=== PATIENT | male | born 1960 | race Asian ===

== ENCOUNTER 2023-01-14 04:36 | Inpatient (IN) | payer MEDICAID, OTHER ==
[~2023-01-14] VITALS: Ht 177.8 cm; Wt 66.7 kg
[2023-01-14 05:05] LABS: BASOPHILS % (AUTO) 1.7 % (0.0-2.0); EOSINOPHILS % (AUTO) 3.6 % (1.0-6.0); HEMATOCRIT 41.8 % (41-53); HEMOGLOBIN 14.2 g/dL (13.5-17.5); LYMPHOCYTES # (AUTO) 1.3 K/uL (1.0-4.8); LYMPHOCYTES % (AUTO) 26.7 % (22.0-44.0); MEAN CORPUSCULAR HEMOGLOBIN 31.9 pg (26.0-34.0); MEAN CORPUSCULAR HGB CONC 33.9 G/dL (31.0-37.0); MEAN CORPUSCULAR VOLUME 94 fL (80-100); MONOCYTES # (AUTO) 0.4 K/uL (0.1-1.0); MONOCYTES % (AUTO) 7.7 % (2.0-9.0); NEUTROPHILS % (AUTO) 60.3 % (40.0-70.0); PLATELET COUNT (AUTO) 244 K/uL (150-450); RED BLOOD CELL COUNT(AUTO) 4.44 MIL/uL (4.50-5.90); RED CELL DISTRIBUTION WIDTH 13.7 % (11.5-14.5); WHITE BLOOD COUNT (AUTO) 5.1 K/uL (4.5-11.0)
[2023-01-14 05:18] LABS: ANION GAP 5 mmol/L (8-16); CALCIUM, TOTAL 8.7 mg/dL (8.8-10.5); CARBON DIOXIDE 27 mmol/L (22-29); CHLORIDE 105 mmol/L (98-107); CREATININE 0.85 mg/dL (0.60-1.30); GLOMERULAR FILTR. RATE CALC > 60 mL/min (>60); GLUCOSE,RANDOM 106 mg/dL (70-110); POTASSIUM 3.9 mmol/L (3.5-5.1); SODIUM SERUM 137 mmol/L (136-145); UREA NITROGEN, BLOOD 13 mg/dL (7-18)
[2023-01-14 05:19] LABS: ALCOHOL, BLOOD (SERUM) < 3 mg/dL (0-10)
[2023-01-14 05:24] LABS: ALANINE AMINOTRANSFERASE 25 U/L (12-78); ALBUMIN 3.3 g/dL (3.4-5.0); ALKALINE PHOSPHATASE 94 U/L (46-116); ASPARTATE AMINOTRANSFERASE 14 U/L (15-37); BILIRUBIN,TOTAL 0.4 mg/dL (0.1-1.0); TOTAL PROTEIN, SERUM 6.5 g/dL (6.4-8.2)
[2023-01-14] MEDS ORDERED: BUPR-49 PO (05:25)
[2023-01-14] MEDS ORDERED: ARIP5TAB37 PO (05:25)
[2023-01-14] MEDS ORDERED: ZIPR20CA38 PO (05:25)
[2023-01-14] MEDS ORDERED: TRAZ-252 PO (05:25)
[2023-01-14 09:41] LABS: ALCOHOL, URINE DRUG SCREEN NEGATIVE (NEGATIVE); AMPHET/METH SCREEN,URINE POSITIVE (NEGATIVE); BARBITURATE SCREEN, URINE NEGATIVE (NEGATIVE); BENZODIAZEPINES SCREEN,URINE NEGATIVE (NEGATIVE); CANNABINOID SCREEN,URINE NEGATIVE (NEGATIVE); COCAINE SCREEN,URINE NEGATIVE (NEGATIVE); METHADONE SCREEN, URINE NEGATIVE (NEGATIVE); OPIATE SCREEN,URINE NEGATIVE (NEGATIVE); PHENCYCLIDINE SCREEN,URINE NEGATIVE (NEGATIVE)
[2023-01-14] MEDS ORDERED: LORazepam 1 MG TABLET PO ONE (09:45)
[2023-01-14 10:01] LABS: COVID AG,FIA SOURCE NASAL SWAB
[2023-01-14 10:19] LABS: SARS-COV2 (COVID) ANTIGEN,FIA Negative (Negative)
[2023-01-14] MEDS ORDERED: HALOPERIDOL 5 MG TABLET PO PRN (11:00)
[2023-01-14 17:45] VITALS: BP 116/80; PULSE 91; RESP 18; TEMP 97.4; O2SAT 100
[2023-01-14] MEDS: LORazepam 2 MG TABLET PO PRN (17:55)
[2023-01-14 20:17] VITALS: BP 142/86; PULSE 80; RESP 18; TEMP 97.8; O2SAT 97
[2023-01-15 08:30] VITALS: BP 139/73; PULSE 84; RESP 17; TEMP 97.5; O2SAT 98
[2023-01-15] MEDS: LORazepam 2 MG TABLET PO PRN ×2 (12:09→17:59)
[2023-01-15] MEDS ORDERED: ACETAMINOPHEN 325 MG TABLET PO PRN (12:30)
[2023-01-15] MEDS ORDERED: NICOTINE 14 MG/24 HOUR PATCH TD PRN (12:30)
[2023-01-15] MEDS ORDERED: DOCUSATE SODIUM 100 MG CAPSULE PO PRN (12:30)
[2023-01-15] MEDS ORDERED: PETROLATUM,WHITE 28 GM JELLY TP PRN (12:30)
[2023-01-15] MEDS ORDERED: CloNIDine HCL 0.1 MG TABLET PO PRN (12:30)
[2023-01-15] MEDS ORDERED: ONDANSETRON HCL 4 MG TABLET PO PRN (12:30)
[2023-01-15] MEDS ORDERED: LOPERAMIDE HCL 2 MG CAPSULE PO PRN (12:30)
[2023-01-15] MEDS ORDERED: IBUPROFEN 400 MG TABLET PO PRN (12:30)
[2023-01-15] MEDS ORDERED: MAG HYDROX/AL HYDROX/SIMETH ES 30 ML SUSPENSION UDCUP PO PRN (12:30)
[2023-01-15] MEDS ORDERED: ALBUTEROL SULFATE HFA 90 MCG/PUFF 8 GM INHALER IH PRN (12:30)
[2023-01-15] MEDS ORDERED: MAGNESIUM HYDROXIDE SUSPENSION 30 ML UDCUP PO PRN (12:30)
[2023-01-15] MEDS ORDERED: GuaiFENesin/D-METHORPHAN [SUGAR-FREE] 200-20MG/10 ML SYRUP UDCUP PO PRN (12:30)
[2023-01-15 17:57] VITALS: BP 128/69
[2023-01-15 20:24] VITALS: BP 128/69; PULSE 100; RESP 18; TEMP 97.6; O2SAT 95
[2023-01-16] MEDS: ZIPRASIDONE HCL 20 MG CAPSULE PO SCH ×2 (06:41→16:55)
[2023-01-16 08:35] LABS: HEMOGLOBIN A1C 5.5 % (3.8-5.6)
[2023-01-16 08:49] LABS: CHOL/HDL RATIO 3.7 (4.2-7.3); THYROID STIMULATING HORMONE 0.83 uIU/mL (0.36-3.74)
[2023-01-16 09:00] VITALS: BP 119/70; PULSE 76; RESP 17; TEMP 97.3; O2SAT 98
[2023-01-16] MEDS: BuPROPion HCL XL 150 MG ER TABLET PO SCH (09:15)
[2023-01-16 16:34] VITALS: BP 108/68
[2023-01-16] MEDS: LORazepam 2 MG TABLET PO PRN (16:37)
[2023-01-16 18:00] VITALS: BP 108/68; PULSE 85; RESP 17; TEMP 92.8; O2SAT 97
[2023-01-16 20:25] VITALS: BP 107/80; PULSE 84; RESP 18; TEMP 98.2; O2SAT 98
[2023-01-17] MEDS: ZIPRASIDONE HCL 20 MG CAPSULE PO SCH ×2 (07:02→17:11)
[2023-01-17 08:18] VITALS: BP 134/92; PULSE 97; RESP 19; TEMP 98.9; O2SAT 99
[2023-01-17] MEDS: BuPROPion HCL XL 150 MG ER TABLET PO SCH (09:07)
[2023-01-17] MEDS: LORazepam 2 MG TABLET PO PRN (09:36)
[2023-01-17 20:08] VITALS: BP 134/78; PULSE 88; RESP 20; TEMP 98.6; O2SAT 98
[2023-01-18] MEDS: ZOLPIDEM TARTRATE 10 MG TABLET PO PRN (00:08)
[2023-01-18] MEDS: ZIPRASIDONE HCL 20 MG CAPSULE PO SCH ×2 (06:44→16:19)
[2023-01-18] MEDS: BuPROPion HCL XL 150 MG ER TABLET PO SCH (08:27)
[2023-01-18 08:43] VITALS: BP 139/88; PULSE 100; RESP 17; TEMP 97.6; O2SAT 92
[2023-01-18 16:29] VITALS: BP 119/92; PULSE 102; RESP 18
[2023-01-18] MEDS: LORazepam 2 MG TABLET PO PRN (16:29)
[2023-01-18] MEDS ORDERED: BuPROPion HCL XL 150 MG ER TABLET PO ONE (17:00)
[2023-01-19 00:44] VITALS: BP 117/64; PULSE 75; RESP 18; TEMP 97.7; O2SAT 98
[2023-01-19] MEDS: ZIPRASIDONE HCL 20 MG CAPSULE PO SCH ×2 (07:00→16:36)
[2023-01-19 08:24] VITALS: BP 121/69; PULSE 85; RESP 19; TEMP 97.8; O2SAT 96
[2023-01-19] MEDS: BuPROPion HCL XL 150 MG ER TABLET PO SCH (09:12)
[2023-01-19] MEDS: LORazepam 2 MG TABLET PO PRN (12:12)
[2023-01-19 20:22] VITALS: BP 107/58; PULSE 100; RESP 20; TEMP 97.9; O2SAT 96
[2023-01-20] MEDS: ZIPRASIDONE HCL 20 MG CAPSULE PO SCH ×2 (06:27→17:16)
[2023-01-20] MEDS: BuPROPion HCL XL 150 MG ER TABLET PO SCH (08:23)
[2023-01-20 08:30] VITALS: BP 137/74; PULSE 69; RESP 18; TEMP 97.5; O2SAT 96
[2023-01-20] MEDS: LORazepam 2 MG TABLET PO PRN (11:38)
[2023-01-20 20:23] VITALS: BP 129/65; PULSE 83; RESP 18; TEMP 98; O2SAT 97
[2023-01-20] MEDS: ZOLPIDEM TARTRATE 10 MG TABLET PO PRN (21:52)
[2023-01-21] MEDS: ZIPRASIDONE HCL 20 MG CAPSULE PO SCH ×2 (06:50→16:26)
[2023-01-21 08:50] VITALS: BP 120/70; PULSE 86; RESP 18; TEMP 98.2; O2SAT 97
[2023-01-21] MEDS: BuPROPion HCL XL 150 MG ER TABLET PO SCH (09:23)
[2023-01-21] MEDS: LORazepam 2 MG TABLET PO PRN (12:20)
[2023-01-21 22:56] VITALS: BP 110/64; PULSE 18; RESP 18; TEMP 98.3; O2SAT 82
[2023-01-22] MEDS ORDERED: BUPR-49 PO (04:46)
[2023-01-22] MEDS ORDERED: ZIPR20CA38 PO (04:46)
[2023-01-22] MEDS: ZIPRASIDONE HCL 20 MG CAPSULE PO SCH (06:48)
[2023-01-22 08:04] LABS: APPEARANCE,URINE HAZY (CLEAR); BILIRUBIN,URINE NEGATIVE (NEGATIVE); COLOR,URINE YELLOW (YELLOW); GLUCOSE, URINE (UA) NEGATIVE (NEGATIVE); KETONES,URINE NEGATIVE (NEGATIVE); LEUKOCYTE ESTERASE ,URINE NEGATIVE (NEGATIVE); NITRATE,URINE NEGATIVE (NEGATIVE); OCCULT BLOOD,URINE NEGATIVE (NEGATIVE); PROTEIN,URINE TRACE mg/dL (NEGATIVE); SPECIFIC GRAVITIY, URINE 1.024 (1.003-1.030); UROBILINOGEN,URINE <=1.0 mg/dL (<=1.0)
[2023-01-22 08:17] LABS: ALCOHOL, URINE DRUG SCREEN NEGATIVE (NEGATIVE); AMPHET/METH SCREEN,URINE NEGATIVE (NEGATIVE); BARBITURATE SCREEN, URINE NEGATIVE (NEGATIVE); BENZODIAZEPINES SCREEN,URINE NEGATIVE (NEGATIVE); CANNABINOID SCREEN,URINE NEGATIVE (NEGATIVE); COCAINE SCREEN,URINE NEGATIVE (NEGATIVE); METHADONE SCREEN, URINE NEGATIVE (NEGATIVE); OPIATE SCREEN,URINE NEGATIVE (NEGATIVE); PHENCYCLIDINE SCREEN,URINE NEGATIVE (NEGATIVE)
[2023-01-22 08:45] VITALS: BP 118/66; PULSE 78; RESP 16; TEMP 97.5; O2SAT 97
[2023-01-22] MEDS: BuPROPion HCL XL 150 MG ER TABLET PO SCH (10:05)
== END 2023-01-22 15:20 | disposition home or self-care (01) | DRG 753 ==
LOC: EMS 04:39 → B2S 13:06
PROVIDERS: ADMIT Psychiatry & Neurology Psychiatry; ATTEND Psychiatry & Neurology Psychiatry
DX: F31.4 Bipolar disorder, current episode depressed, severe, without psychotic features (principal); R45.851 Suicidal ideations; R03.0 Elevated blood-pressure reading, without diagnosis of hypertension; Z20.822 Contact with and (suspected) exposure to COVID-19; F15.10 Other stimulant abuse, uncomplicated; F41.9 Anxiety disorder, unspecified; Z79.899 Other long term (current) drug therapy; Z91.51 Personal history of suicidal behavior
CPT/HCPCS: 80053; 80061; 80307; 81003; 83036; 84443; 85025; 99285; G0480